=== PATIENT | male | born 1965 | race Caucasian/White ===

== ENCOUNTER 2021-01-20 07:35 | Outpatient (CLI) | payer OTHER, SELFPAY ==
--- NOTE | ~2021-01-20 | XR_ITS ---
EXAMINATION: XR UGIAC w barium swallow DATE: 01/20/2021 08:28 INDICATION: Episodic nausea TECHNIQUE: The patient drank thick barium, gas-producing crystals, and thin barium. A total of 1429 f luoroscopic images of the esophagus, stomach, and proximal small bowel were obtained. Fluoroscopy exp osure time was 2.3 minutes. Total DAP was 22.45 mGycm^2 COMPARISON: None. FINDINGS: The esophagus is normal without mass or stricture. Esophageal motility is normal. There is no hiatal hernia. The stomach and proximal small bowel are normal. There was a single episode of isma roesophageal reflux of a large amount of contrast extending cephalad to the level of the thoracic inl et. IMPRESSION: 1. Gastroesophageal reflux. Otherwise normal and esophagram and upper GI study. Reviewed, dictated and finalized at location A.
== END 2021-01-20 07:36 | disposition home or self-care (01) ==
PROVIDERS: PCP Internal Medicine; Visit Provider Nurse Practitioner
DX: R11.0 Nausea (principal); K21.9 Gastro-esophageal reflux disease without esophagitis
CPT/HCPCS: 74246

== ENCOUNTER 2021-01-23 16:22 | Inpatient (IN) | payer OTHER, SELFPAY ==
[2021-01-23] VITALS (7 sets, daily range): BP systolic 114–129; BP diastolic 74–90; PULSE 84–100; RESP 14–20; TEMP 36.6–36.9; O2SAT 96–100; BMI 33.7
--- NOTE | ~2021-01-23 | CT_ITS ---
EXAMINATION: CT abdomen pelvis wo con EXAM DATE: 01/23/2021 18:11 INDICATION: Intermittent epigastric pain. Diarrhea. Reflux. TECHNIQUE: Spiral CT of the abdomen and pelvis was performed without contrast. Axial, coronal and s agittal images of the abdomen and pelvis were reviewed. The dose-length product (DLP) for this exami [facility] was 926.31 mGy-cm. The exposure was tailored according to patient size (auto mA exposure cont rol), and iterative reconstruction (ASIR) was used as additional dose reduction technique. Comparison is made to prior examination from 06/09/2011. FINDINGS: The liver, spleen, adrenal glands and pancreas are unremarkable. Gallbladder is unremarkab le. No biliary obstruction. There is no nephrolithiasis or hydronephrosis. There is mild prostatom egaly. The bladder is unremarkable. Cluster of pericecal lymph nodes up to 1.1 x 1.3 cm. These lymp h nodes were present in 2010 but were smaller. Could be chronic mesenteric adenitis. There is mild s cattered arteriosclerotic disease. Small inguinal fat-containing hernias. Small umbilical fat-contain ing hernia. The appendix is normal. The stomach and small bowel are unremarkable. There is colonic fluid, corre late for diarrhea. There is mild sigmoid colonic diverticulosis. There is no adjacent inflammatory c hange to suggest diverticulitis. No free intraperitoneal gas. The heart is normal in size. There are no pericardial or pleural effusions. The lung bases are unremarkable. The bones are unremarkabl e. IMPRESSION: 1. Colonic fluid, correlate for diarrhea. 2. Small cluster of mesenteric lymph nodes probably chronic mesenteric adenitis. 3. Mild prostatomegaly. 4. Mild colonic diverticulosis. 5. Small fat-containing hernias. Reviewed, dictated and finalized at location A. IMPRESSION: 1. Colonic fluid, correlate for diarrhea. 2. Small cluster of mesenteric lymph nodes probably chronic mesenteric adeniti s. 3. Mild prostatomegaly. 4. Mild colonic diverticulosis. 5. Small fat-containing hernias.
--- NOTE | ~2021-01-23 | US_ITS ---
EXAMINATION: US renal BI DATE: 01/24/2021 09:32 INDICATION: Acute renal insufficiency TECHNIQUE: Multiple ultrasound grayscale images of the kidneys were obtained. COMPARISON: CT abdomen and pelvis dated 01/23/2021 FINDINGS: The right kidney measures 9.4 x 4.6 x 5.8 cm. The left kidney measures 10.3 x 5.6 x 6.0 cm. The kidne ys demonstrate normal echogenicity. There is no hydronephrosis in either kidney. No stones identifie d. The bladder is normal accounting for partially decompressed state. IMPRESSION: 1. Normal kidneys without hydronephrosis. Reviewed, dictated and finalized at location A.
--- NOTE | ~2021-01-23 | CT_ITS ---
EXAMINATION: CT chest abdomen pelvis wo con DATE: 01/25/2021 09:27 INDICATION: Shortness of breath, diarrhea, acute renal failure TECHNIQUE: Transaxial computed tomographic images of the chest, abdomen, and pelvis were obtained wit hout intravenous contrast. The dose-length product (DLP) was 1320.52 mGy-cm. Automated exposure contr ol and iterative reconstruction technique were employed. COMPARISON: 01/23/2021 FINDINGS: CHEST CT: The lungs are free of acute opacities. There is no pleural effusion or pneumothorax. No pathologicall y enlarged thoracic lymph nodes are identified. The heart size is normal. There is mild thoracic spon dylosis. ABDOMEN/PELVIS CT: The liver, spleen, pancreas, gallbladder, and adrenal glands are normal. The kidneys are unremarkable . No pathologically enlarged abdominal or pelvic lymph nodes are identified. The appendix is normal. There is no free intraperitoneal gas or evidence of bowel obstruction. A small volume of liquid stool is seen in the rectum, consistent with history of diarrhea. Colonic diverticulosis is present withou t evidence of diverticulitis. There is severe lumbar spondylosis. There are fat-containing inguinal a nd umbilical hernias. IMPRESSION: 1. Small amount of liquid stool in the colon, consistent with history of diarrhea. 2. No CT correlate for shortness of breath. Reviewed, dictated and finalized at location A. IMPRESSION: 1. Small amount of liquid stool in the colon, consistent with history of diarrh ea. 2. No CT correlate for shortness of breath.
--- NOTE | 2021-01-23 16:24 | ECG_ITS ---
Measurements Intervals [place] Rate: 100 P: 40 MA: 140 QRS: 19 QRSD: 100 T: 17 QT: 311 QTc: 403 Interpretive Statements SINUS TACHYCARDIA INCOMPLETE RIGHT BUNDLE BRANCH BLOCK DELAYED PRECORDIAL R/S TRANSITION MINIMAL Q WAVES- INFERIOR LEADS BORDERLINE ECG Electronically Signed On 01-23-2021 19:06:08 CDT by Timoteo Vo D.O.
[2021-01-23 17:18] LABS: Basophils Absolute Auto 0.1 K/mm3 (0.0-0.1); Basophils Percent Auto 0.4 % (0.2-1.2); Eosinophils Absolute Auto 0.1 K/mm3 (0-0.3); Eosinophils Percent Auto 0.4 % (0-4.4); Hematocrit 36.2 % (42.0-52.0); Hemoglobin 12.1 g/dL (14.0-18.0); Immature Granulocyte Absolute 0.05 K/mm3 (0.00-0.031); Immature Granulocyte Percent A 0.4 % (0-0.5); Lymphocytes Absolute Auto 1.63 K/mm3 (0.9-3.2); Lymphocytes Percent Auto 11.5 % (18.3-44.2); Mean Corpuscular HGB Conc 33.4 g/dl (32-36); Mean Corpuscular Hemoglobin 30.4 pg (26-34); Mean Platelet Volume 9.5 fl (7.4-10.4); Monocytes Absolute Auto 1.1 K/mm3 (0.1-0.6); Monocytes Percent Auto 7.5 % (2.6-8.5); Neutrophils Absolute Auto 11.4 K/mm3 (1.3-6.7); Neutrophils Percent Auto 79.8 % (45.5-73.1); Platelet Count Result 251 k/mm3 (150-375); Red Blood Count 3.98 M/mm3 (4.6-6.20); Red Cell Distribution Width 12.8 % (11.5-14.5); White Blood Count 14.2 K/mm3 (4.5-10.0)
[2021-01-23 17:24] LABS: Add Urine Microscopic? YES; Appearance Urine Cloudy (Clear); Bacteria Urine Trace /hpf; Bilirubin Urine 1+ (Negative); Blood Urine Negative (Negative); Color Urine Amber (Yellow); Glucose Urine UA Negative (Negative); Hyaline Casts Urine 20-29 /lpf; Ketones Urine Negative (Negative); Leukocyte Esterase Ur Negative LEU/UL (Negative); Mucus Urine Rare /lpf; Nitrate Urine Negative (Negative); Protein Urine 2+ mg/dL (Negative); Squamous Epithelial Cell Urine Few /hpf (Few); WBC Clumps Urine Present /HPF
[2021-01-23 17:27] LABS: Alanine Aminotransferase 19 U/L (4-50); Albumin Level 4.8 g/dL (3.5-5.1); Alkaline Phosphatase 94 U/L (38-126); Anion Gap 15 mmol/L (8-16); Aspartate Amino Transferase 27 U/L (17-59); Bilirubin,Total 0.6 mg/dL (0.2-1.3); Blood Urea Nitrogen 66 mg/dL (9-20); Calcium 9.9 mg/dL (8.4-10.2); Carbon Dioxide 17 mmol/L (22-30); Chloride 109 mmol/L (98-107); Estimated CRCL calculation 19 ml/min; Estimated Glomerular Filt Rate 12; Glucose 104 mg/dL (75-110); Lipase 113 U/L (23-300); Potassium 4.9 mmol/L (3.4-5.0); Sodium 141 mmol/L (137-145)
[2021-01-23 17:39] LABS: Troponin I < 0.012 ng/mL (0.000-0.034)
[2021-01-23] MEDS: SODIUM CHLORIDE 0.9% IV 1,000 ML 999 ML IV CONT (17:57)
--- NOTE | 2021-01-23 18:12 | ED.ABDPAIN ---
HPI - Abdominal Pain General Chief Complaint: Abdominal Pain Stated Complaint: Diarrhea x 2 weeks Time Seen by Provider: 01/23/21 17:50 Source: patient Mode of arrival: ambulatory Limitations: no limitations History of Present Illness HPI narrative: Patient is a 55-year-old male complaining of lower diarrhea, loose watery, nonbloody for the 2 weeks. Patient states that everything he eats or drinks goes right through him. Patient states that he had some chest discomfort after eating, described as burning but only lasted for a few minutes. Patient states that he was diagnosed with GERD this year after having an upper GI study. Patient denies any shortness of breath, nausea, vomiting, fever or chills. Related Data Home Medications Medication Instructions Recorded Confirmed omega-3 fatty acids 1,000 mg 1,000 mg PO DAILY cap 08/15/20 01/07/21 capsule Allergies Allergy/AdvReac Type Severity Reaction Status Date / Time banana Allergy Unknown hives Verified 01/02/21 07:27 Tiana Nut Allergy Mild hives Uncoded 01/02/21 07:27 Review of Systems Review of Systems: All systems reviewed & are unremarkable except as noted in HPI and below Constitutional: Constitutional: Denies body ache(s), Denies chills, Denies excessive sweating, Denies fatigue, Denies fever(s), Denies headache(s), Denies lethargy, Denies malaise, Denies weakness and Denies weight loss Eyes: Eyes: Denies blurry vision, Denies change in vision and Denies loss of vision ENT: Denies dizziness, Denies ear discharge, Denies headache(s), Denies lip swelling, Denies epistaxis, Denies nasal congestion, Denies neck pain, Denies throat swelling and Denies tongue swelling Cardiovascular: Cardiovascular: Denies diaphoresis, Denies rapid heart rate, Denies edema, Denies irregular heart rhythm, Denies lightheadedness, Denies palpitations, Denies dyspnea and Denies dyspnea on exertion Respiratory: Respiratory: Denies chest congestion, Denies cough, Denies hemoptysis, Denies dyspnea and Denies dyspnea on exertion Gastrointestinal: Gastrointestinal: Denies melena, Denies hematochezia, Denies diarrhea, Denies vomiting and Denies hematemesis Musculoskeletal: Musculoskeletal: Denies abnormal gait, Denies deformity, Denies joint swelling, Denies limited range of motion, Denies neck pain and Denies numbness Neurologic: Denies Abnormal speech present, Denies abnormal gait, Denies confusion, Denies dizziness, Denies headache(s), Denies focal weakness, Denies loss of vision, Denies numbness, Denies Other visual disturbances, Denies Sensory deficit (Neuro) and Denies weakness Psychiatric: Psychiatric: Denies confusion, Denies depression, Denies auditory hallucinations, Denies homicidal ideation and Denies suicidal ideation Endocrine: Endocrine: Denies cold intolerance, Denies excessive sweating, Denies fatigue, Denies heat intolerance and Denies palpitations Hematologic/Lymphatic: Hematologic/Lymphatic: Denies easy bleeding and Denies easy bruising Allergic/Immunologic: Allergic/Immunologic: Denies lip swelling, Denies throat swelling and Denies tongue swelling PMFSH Past Medical History Medical History (Updated 01/23/21 @ 19:02 by Elian Al MD) Mixed hyperlipidemia Pre-diabetes Family History Family History Father Family history of diabetes mellitus in first degree relative Family history of congenital heart disease Social History Social History Smoking end date: 07/26/12 Alcohol intake: current Exam Const: General: cooperative, comfortable, no acute distress, well developed, alert and awake; No confusion Orientation/consciousness: oriented to person, oriented to place, oriented to time, patient oriented x3 and No confusion Limitations: no limitations HENMT: Head: normal to inspection, normocephalic and atraumatic Ears: hearing grossly normal antolin
[2021-01-23] MEDS: LACTATED RINGERS 1,000 ML 125 ML IV CONT (19:29)
[2021-01-23 20:50] LABS: Troponin I < 0.012 ng/mL (0.000-0.034)
--- NOTE | 2021-01-23 20:56 | PM.IMHP ---
H&P: HPI History of Present Illness Date/Time: 01/23/21 20:56 This is a 55-year-old male patient who has a history of hypertension and hyperlipidemia. The patient stated that he has been having diarrhea for approximately 2 weeks. The patient states that every time he eats something he has to run to the bathroom it has been a greenish liquid stool. The patient stated that he has not had any stool specimens and had has not had any antibiotics. The patient stated that he has not started any new medications. He has been on the same medications for the last 6 months. He stated that he was diagnosed with prediabetes but was never treated for diabetes. He states that he has never had any kidney problems. His white count was noted to be 14.2. His H&H 12.1 and 36.2. Patient's creatinine was noted to be 5.0 with a GFR of 12 and a BUN of 66. Urine had 2+ protein. patient recently had a upper GI barium swallow on 01/20/2021 due to his stomach problems and the impression was gastroesophageal reflux. Otherwise was a normal esophagram and upper GI study. The patient had a CT of his abdomen and pelvis today which was read as colonic fluid, correlate for diarrhea. Small clusters of mesenteric lymph nodes probably chronic mesenteric adenitis. Mild prostatomegaly. Mild colonic diverticulosis. Small fat containing hernias. I spoke with my collaborative who recommended that the patient get stool specimens and be started on Cipro and Flagyl. The patient was started on IV fluids. He is being admitted to inpatient status on the date of service 01/23/2021 Chief Complaint: Diarrhea Review of Systems Review of Systems: All systems reviewed & are unremarkable except as noted in HPI and below Constitutional: Constitutional: Reports as per HPI and Reports no additional constitutional complaints Eyes: Eyes: Reports as per HPI and Reports no additional eye complaints ENT: Reports system reviewed and no additional complaints, except as documented and Reports Normal hearing present Cardiovascular: Cardiovascular: Reports no additional cardiovascular complaints Respiratory: Respiratory: Reports no additional respiratory complaints and Reports no additional respiratory complaints Gastrointestinal: Gastrointestinal: Reports as per HPI and Reports no additional gastrointestinal complaints Musculoskeletal: Musculoskeletal: Reports no additional musculoskeletal complaints Integumentary/Breasts: Skin/Breast: Reports system reviewed and no additional complaints, except as docu and Reports as per HPI Neurologic: Reports system reviewed and no additional complaints, except as documented, Reports as per HPI and Reports Normal hearing present Psychiatric: Psychiatric: Reports no additional psychiatric complaints and Reports as per HPI Endocrine: Endocrine: Reports no additional endocrine complaints Hematologic/Lymphatic: Hematologic/Lymphatic: Reports no additional hematologic/lymphatic complaints Allergic/Immunologic: Allergic/Immunologic: Reports no additional allergic/immunologic complaints [facility] Past Medical History Medical History (Updated 01/23/21 @ 21:02 by Shantelle Parham NP) Chronic GERD Hypertension Mixed hyperlipidemia Pre-diabetes Surgical History Surgical History (Updated 01/23/21 @ 21:01 by Shantelle Parham NP) History of ankle surgery right History of back surgery x3 History of surgery on arm left arm Family History Family History Father Family history of diabetes mellitus in first degree relative Family history of congenital heart disease Social History Social History (Updated 01/23/21 @ 21:03 by Shantelle Parham NP) Social History: the patient is to a nurse and she is the durable power attorney lawyer for healthcare. They have 3 children. The patient owns a lawn care service. The patient smokes marijuana almost on a daily basis. He he rarely uses alcohol. H
--- NOTE | 2021-01-23 20:58 | PC.NURSE ---
Pt taken to floor with LR infusing
--- NOTE | 2021-01-23 21:29 | PCRCNOTE ---
Patient refused use of hospital unit. Patient stated he did not complete the sleep study and does not use a CPAP or BiPAP at home.
--- NOTE | 2021-01-23 21:40 | ADMGEN ---
This patient, Jeffrey Lyle, was admitted to Medical Room 259-01. Patient/family oriented to hospital policies and general routines including ID bracelet, bed and alarms, visiting hours, pain management, procedures, bathroom and other care routines, personal items, smoking policy, room service/diet, and visiting hours. Information on how to activate the Rapid Response Team has been discussed. Patient/Family are encouraged to report perceived risks to care and to ask questions if they do not understand what they are told or what they should do.
[2021-01-23] MEDS: CIPROFLOXACIN 400 MG/D5W 200ML 200 ML 200 MG IVPB (22:15)
[2021-01-23] MEDS: PANTOPRAZOLE SODIUM IV 40 MG VIAL IV PUSH (22:15)
[2021-01-23] MEDS: diphenhydrAMINE HCl CAP 25 MG CAPSULE PO (22:15)
[2021-01-24] MEDS: metroNIDAZOLE 500 MG/ISO 100ML 500 MG/100 ML BAG 100 MG IVPB ×4 (00:24→17:06)
[2021-01-24 03:46] LABS: Immunochemical Fecal Occult Bl Negative (N)
[2021-01-24 03:47] LABS: IFOB Positive Control Positive
[2021-01-24 05:06] VITALS: BP 121/61; PULSE 82; RESP 16; TEMP 36.3; O2SAT 99
[2021-01-24] MEDS: LACTATED RINGERS 1,000 ML 125 ML IV CONT ×2 (05:53→17:07)
[2021-01-24 06:21] LABS: Basophils Percent Auto 0.5 % (0.2-1.2); Eosinophils Absolute Auto 0.1 K/mm3 (0-0.3); Eosinophils Percent Auto 1.5 % (0-4.4); Hematocrit 30.9 % (42.0-52.0); Hemoglobin 10.4 g/dL (14.0-18.0); Immature Granulocyte Absolute 0.03 K/mm3 (0.00-0.031); Immature Granulocyte Percent A 0.4 % (0-0.5); Lymphocytes Absolute Auto 1.91 K/mm3 (0.9-3.2); Lymphocytes Percent Auto 22.3 % (18.3-44.2); Mean Corpuscular HGB Conc 33.7 g/dl (32-36); Mean Corpuscular Hemoglobin 30.8 pg (26-34); Mean Corpuscular Volume 91.4 fl (80-100); Mean Platelet Volume 9.8 fl (7.4-10.4); Monocytes Absolute Auto 1.1 K/mm3 (0.1-0.6); Monocytes Percent Auto 12.5 % (2.6-8.5); Neutrophils Absolute Auto 5.4 K/mm3 (1.3-6.7); Neutrophils Percent Auto 62.8 % (45.5-73.1); Platelet Count Result 207 k/mm3 (150-375); Red Blood Count 3.38 M/mm3 (4.6-6.20); Red Cell Distribution Width 12.9 % (11.5-14.5); White Blood Count 8.6 K/mm3 (4.5-10.0)
[2021-01-24 06:33] LABS: Lactic Acid Reflex 0.6 mmol/L (0.7-2.1)
[2021-01-24 06:35] LABS: Alanine Aminotransferase 14 U/L (4-50); Alkaline Phosphatase 76 U/L (38-126); Anion Gap 12 mmol/L (8-16); Aspartate Amino Transferase 17 U/L (17-59); Bilirubin,Total 0.4 mg/dL (0.2-1.3); Blood Urea Nitrogen 57 mg/dL (9-20); Calcium 9.1 mg/dL (8.4-10.2); Carbon Dioxide 18 mmol/L (22-30); Chloride 110 mmol/L (98-107); Estimated CRCL calculation 30 ml/min; Estimated Glomerular Filt Rate 20; Glucose 98 mg/dL (75-110); Lactate Dehydrogenase 293 U/L (313-618); Magnesium 1.9 mg/dL (1.6-2.3); Potassium 4.5 mmol/L (3.4-5.0); Sodium 140 mmol/L (137-145)
--- NOTE | 2021-01-24 08:33 | PM.IMPN ---
Progress Note: A&P Assessment and Plan (1) Acute renal failure: Qualifiers: Acute renal failure type: unspecified Qualified Code(s): N17.9 - Acute kidney failure, unspecified Code(s): N17.9 - Acute kidney failure, unspecified Status: Acute Assessment and Plan: Renal ultrasound - no hydronephrosis, no concerns. Continue IV hydration. Recheck BMP and CBC in the a.m.. Nephrology has been consulted. Hold lisinopril. Hold all nephrotoxic medication, renal dose IV antibiotics, and avoid CT contrast dye. (2) Mesenteric adenitis: Code(s): I88.0 - Nonspecific mesenteric lymphadenitis Status: Acute Assessment and Plan: severely dehydrated due to diarrhea for approximately 2 weeks. patient stated every time that he ate anything, he immediately would have to have a liquid green stool. CT scan with small cluster of mesenteric lymph node probably chronic mesenteric adenitis and an elevated white count. IV Cipro and Flagyl. IVFs - rehydration stool specimens cultured. strict I and Os. TSH 2.29 and magnesium 1.9 Continue to monitor electrolytes. (3) Hypertension: Code(s): I10 - Essential (primary) hypertension Status: Chronic Assessment and Plan: Holding lisinopril until renal fxn improves. SBPs 110-120s. p.r.n. hydralazine. (4) Chronic GERD: Code(s): K21.9 - Gastro-esophageal reflux disease without esophagitis Status: Chronic Assessment and Plan: IV Protonix. (5) Mixed hyperlipidemia: Code(s): E78.2 - Mixed hyperlipidemia Status: Acute Assessment and Plan: continued home [place] 3 hodling pravastatin until renal fxn improves (6) COLTON on CPAP: Code(s): G47.33 - Obstructive sleep apnea (adult) (pediatric); Z99.89 - Dependence on other enabling machines and devices Status: Acute Assessment and Plan: May use home CPAP if he has it and still continues to use it. Subjective Date/time seen: 01/24/21 08:33 Interval history: Jeffrey is a 55-year-old male patient who has a history of hypertension and hyperlipidemia. admitted with greenish liquid diarrhea every time he eats something for approximately 2 weeks. No new medications, no travel out of the country, no antibiotics in last 2 months. He stated that he was diagnosed with prediabetes but was never treated for diabetes. He states that he has never had any kidney problems. A1 C worse from 5.8 to 6.1 now. WBC 14.2 improved to 8.6, H/H stable. Patient's creatinine 5.0 improved to 3.2.Urine had 2+ protein.Nephrology consulted. Renal US WNL. HOLDING his lisinopril and statin - will need to monitor BPs. Patient recently had a upper GI barium swallow on 01/20/2021 due to his stomach problems and the impression was gastroesophageal reflux. Otherwise was a normal esophagram and upper GI study. Yesterday CT abdomen and pelvis showed small clusters of larger mesenteric lymph nodes probably chronic mesenteric adenitis. Mild prostatomegaly. Mild colonic diverticulosis. Stool samples/cultures pending in Micro. Started on Cipro and Flagyl, liquid diet, and IV fluids. Patient was hoping to go home tomorrow, I informed him this could take at least 3-5 days to recover from. Review of Systems Review of Systems: All systems reviewed & are unremarkable except as noted in HPI and below Constitutional: Constitutional: Reports as per HPI, Reports no additional constitutional complaints, Denies body ache(s), Denies chills, Denies excessive sweating, Denies fatigue, Denies fever(s), Denies headache(s), Denies lethargy, Denies malaise, Denies weakness and Denies weight loss Eyes: Eyes: Reports as per HPI, Reports no additional eye complaints, Denies blurry vision, Denies change in vision and Denies loss of vision ENT: Reports system reviewed and no additional complaints, except as documented, Reports Normal hearing present, Denies dizziness, Denies ear discharge,
[2021-01-24] MEDS: PANTOPRAZOLE SODIUM IV 40 MG VIAL IV PUSH ×2 (09:07→20:48)
[2021-01-24 09:09] LABS: Hemoglobin A1C 6.1 % (<5.7)
[2021-01-24 10:00] VITALS: BP 109/89; PULSE 92
[2021-01-24] MEDS: OMEGA 3 POLYUNSAT FATTY ACIDS 1 GM CAP PO (10:14)
[2021-01-24] MEDS: lisinopriL 10 MG TABLET 30 MG PO (10:14)
[2021-01-24] MEDS: PRAVASTATIN SODIUM 20 MG TABLET 40 MG PO (10:14)
[2021-01-24] MEDS: THERAPEUTIC MULTIVITAMINS/MINERALS TAB (*BKC) 1 TABLET PO (10:14)
--- NOTE | 2021-01-24 13:18 | PM.CNNEP ---
Assessment and Plan Assessment and plan (1) Acute renal failure: Qualifiers: Acute renal failure type: unspecified Qualified Code(s): N17.9 - Acute kidney failure, unspecified Code(s): N17.9 - Acute kidney failure, unspecified Status: Acute Assessment and Plan: presumably due to prerenal factors for diarrhea and poor oral intake this was likely worsened by continued us his LISSA-I creatinine improving with IVF resuscitation check urine electrolytes follow trend of repeat labs and UOP (2) Mesenteric adenitis: Code(s): I88.0 - Nonspecific mesenteric lymphadenitis Status: Acute Assessment and Plan: etiology? cause of diarrhea x 2 weeks? empirically on antlbiotics follow cultures (3) Hypertension: Code(s): I10 - Essential (primary) hypertension Status: Chronic Assessment and Plan: reasonably controlled holding lisinopril PRN hydralazine follow trend of hemodynamics History of Present Illness Reason for Consult Consult date: 01/24/21 Reason for consult: acute renal failure Chief Complaint Chief complaint: Acute Renal Failure History of Present Illness Narrative: The patient is a 55-year-old male with a past medical history as outlined below who presented to [facility] ER due to complaints of persistent diarrhea. According to the patient he has been having nonstop diarrhea for the last 2 weeks. Every time he eats something he has to use the restroom quite quickly with a resultant greenish liquid stool. The diarrhea is loose and watery and without any evidence of blood. He denies any recent sick contacts or antibiotic use. He denies any new medications in the last few weeks either. Since the diarrhea only occurs whenever he eats something, he is unfortunately limited his oral intake in the hopes that this would resolve if not reduce the episodes of diarrhea. As the symptoms have continued to worsen in the last 2 weeks, he came to the ER for further evaluation. Workup and evaluation emergency room demonstrated the patient to be hemodynamically stable and routine blood test demonstrated a marked decline in his kidney function with a creatinine of 5.0 associated with a GFR of 12. His CBC showed a mildly elevated white blood cell count and mild anemia as well. Given his symptoms as mentioned, he did undergo a CT scan of his abdomen pelvis which demonstrated colonic fluid and small clusters of mesenteric lymph nodes probably due to chronic mesenteric adenitis along with mild prostatomegaly and mild colonic diverticulosis. Given the constellation of symptoms as mentioned in association with the CT scan findings, appropriate cultures were obtained, he was started on IV antibiotics (ciprofloxacin and Flagyl) as well as IV fluids with subsequent admission to the hospital for further testing. Since his admission, as well as IV fluid resuscitation, his BUN and creatinine have improved and he does feel somewhat better in general. Renal consultation was requested due to his acute kidney injury/acute renal failure. From review of his records and discussion with the patient, the patient has no history with regard to kidney disease or renal insufficiency. His last labs in June of 2020 show a creatinine of 1.17 with a fairly well preserved GFR. He does have risk factors for kidney disease in the form of hyperlipidemia, hypertension, and diabetes but all of these conditions have been fairly well controlled with conservative therapy / medications to his knowledge. In spite of his elevated BUN and creatinine, he has no critical electrolyte abnormalities and is making urine. His CT scan did not show any type anatomical abnormalities with regard to his kidneys either. Currently, at the time my visit, the patient does not appear to be any acute distress. Review of Systems Review of Systems: Narrative: As per HPI. [facility] Past Medical History
[2021-01-24 14:00] VITALS: BP 121/74; PULSE 71; RESP 18; TEMP 36.1; O2SAT 100
[2021-01-24] MEDS: CIPROFLOXACIN 400 MG/D5W 200ML 200 ML 200 MG IVPB (20:47)
[2021-01-24 21:26] VITALS: BP 122/81; PULSE 80; RESP 16; TEMP 36.4; O2SAT 99
[2021-01-24] MEDS: diphenhydrAMINE HCl CAP 25 MG CAPSULE PO (22:07)
[2021-01-25] MEDS: metroNIDAZOLE 500 MG/ISO 100ML 500 MG/100 ML BAG 100 MG IVPB ×4 (00:42→18:33)
[2021-01-25 02:30] VITALS: BP 122/96; PULSE 104; RESP 18; TEMP 35.9; O2SAT 100
[2021-01-25] MEDS: LACTATED RINGERS 1,000 ML 125 ML IV CONT ×2 (04:25→14:02)
[2021-01-25 06:00] VITALS: BP 140/71; PULSE 78; RESP 16; TEMP 36.6; O2SAT 96
[2021-01-25 06:00] LABS: Hematocrit 30.6 % (42.0-52.0); Hemoglobin 10.1 g/dL (14.0-18.0); Mean Corpuscular Hemoglobin 30.5 pg (26-34); Mean Corpuscular Volume 92.4 fl (80-100); Mean Platelet Volume 9.5 fl (7.4-10.4); Platelet Count Result 187 k/mm3 (150-375); Red Blood Count 3.31 M/mm3 (4.6-6.20); Red Cell Distribution Width 12.5 % (11.5-14.5); White Blood Count 8.6 K/mm3 (4.5-10.0)
[2021-01-25 06:24] LABS: Anion Gap 7 mmol/L (8-16); Blood Urea Nitrogen 37 mg/dL (9-20); Calcium 9.1 mg/dL (8.4-10.2); Carbon Dioxide 21 mmol/L (22-30); Chloride 112 mmol/L (98-107); Estimated CRCL calculation 50 ml/min; Estimated Glomerular Filt Rate 37; Glucose 96 mg/dL (75-110); Potassium 4.8 mmol/L (3.4-5.0); Sodium 140 mmol/L (137-145)
[2021-01-25] MEDS: THERAPEUTIC MULTIVITAMINS/MINERALS TAB (*BKC) 1 TABLET PO (09:02)
[2021-01-25] MEDS: OMEGA 3 POLYUNSAT FATTY ACIDS 1 GM CAP PO (09:02)
[2021-01-25] MEDS: PANTOPRAZOLE SODIUM IV 40 MG VIAL IV PUSH ×2 (09:02→21:02)
--- NOTE | 2021-01-25 11:20 | PM.PNNEP ---
Progress Note: A&P Assessment and Plan (1) Acute renal failure: Qualifiers: Acute renal failure type: unspecified Qualified Code(s): N17.9 - Acute kidney failure, unspecified Code(s): N17.9 - Acute kidney failure, unspecified Status: Acute Assessment and Plan: presumably due to prerenal factors for diarrhea and poor oral intake this was likely worsened by continued use his LISSA-I creatinine improving reasonably well with IVF resuscitation follow trend of repeat labs and UOP (2) Mesenteric adenitis: Code(s): I88.0 - Nonspecific mesenteric lymphadenitis Status: Acute Assessment and Plan: etiology? cause of diarrhea x 2 weeks? empirically on antlbiotics follow cultures (3) Hypertension: Code(s): I10 - Essential (primary) hypertension Status: Chronic Assessment and Plan: reasonably controlled holding lisinopril PRN hydralazine follow trend of hemodynamics Will continue to follow. Subjective Date/time seen: 01/25/21 11:20 Seems to be doing reasonably well at the time of my visit; quite anxious about discharge today but seems to understand the reasoning for ongoing therapy particularly given his severe NORA/ARF on presentation. Exam Narrative: Exam Narrative: General: WD/WN male in NAD Heart: normal S1 and S2; no rub Lungs: clear to auscultation Abdomen: soft, nontender, nondistended, positive bowel sounds Extremities: no cyanosis or clubbing; no edema Skin: warm and dry Objective Data Vital Signs Vital Signs: Vital Signs Temp Pulse Resp BP Pulse Ox 01/25/21 06:00 36.6 C 78 16 140/71 96 01/24/21 21:26 36.4 C 80 16 122/81 99 01/24/21 14:00 36.1 C L 71 18 121/74 100 Intake/Output Intake/Output: Intake & Output 01/22/21 01/23/21 01/24/21 01/25/21 23:59 23:59 23:59 23:59 Intake Total 1000 4540 1840 Output Total 950 300 Balance 1000 3590 1540 Meds/Results Medications: Active Medications Generic Name Dose Route Start Last Admin Trade Name Freq PRN Reason Stop Dose Admin Calcium Carbonate 200 mg 01/24/21 08:16 Calcium Carbonate (Tums) 500 Mg (200 Mg Elemental) PO Q6H PRN Indigestion Diphenhydramine HCl 25 mg 01/23/21 20:37 01/24/21 22:07 Diphenhydramine Hcl Cap 25 Mg Capsule PO 25 mg Q6H PRN Administration Itching Fish Oil 1 gm 01/24/21 09:00 01/25/21 09:02 [place] 3 Polyunsat Fatty Acids 1 Gm Cap PO 1 gm DAILY JAYSON Administration Hydralazine HCl 10 mg 01/23/21 20:53 Hydralazine Hcl 20 Mg/Ml Vial IV PUSH Q8H PRN Blood Pressure - High Lactated Ringer's 1,000 mls @ 125 mls/hr 01/23/21 19:05 01/25/21 09:01 Lr - Lactated Ringers Iv IV CONT Not Given .Q8H JAYSON Ciprofloxacin/Dextrose 200 mls @ 200 mls/hr 01/24/21 21:00 01/24/21 21:50 Cipro 400 Mg/D5w 200 Ml IVPB Infused HS JAYSON Infusion Metronidazole 500 mg in 100 mls @ 100 mls/hr 01/24/21 00:00 01/25/21 07:50 Flagyl 500 Mg/Iso Soln 100 Ml IVPB Infused Q6HR JAYSON Infusion Multivitamins/Calcium 1 tablet 01/24/21 09:00 01/25/21 09:02 Therapeutic Multivitamins/Minerals Tab (*Bkc) PO 1 tablet DAILY JAYSON Administration Pantoprazole Sodium 40 mg 01/23/21 21:00 01/25/21 09:02 Pantoprazole Sodium Iv 40 Mg Vial IV PUSH 40 mg Q12HR JAYSON Administration Radiology Results: ITS Impressions Abdomen/Pelvis CT 01/23/21 18:11 IMPRESSION: 1. Colonic fluid, correlate for diarrhea. 2. Small cluster of mesenteric lymph nodes probably chronic mesenteric adenitis. 3. Mild prostatomegaly. 4. Mild colonic diverticulosis. 5. Small fat-containing hernias. Renal Ultrasound 01/24/21 09:40 IMPRESSION: 1. Normal kidneys without hydronephrosis. Chest/Abdomen/Pelvis CT 01/25/21 09:47 IMPRESSION: 1. Small amount of liquid stool in the colon, consistent with history of diarrhea. 2. No CT correlate for shortness of breath. L
--- NOTE | 2021-01-25 17:40 | PM.IMPN ---
Progress Note: A&P Assessment and Plan (1) Acute renal failure: Qualifiers: Acute renal failure type: unspecified Qualified Code(s): N17.9 - Acute kidney failure, unspecified Code(s): N17.9 - Acute kidney failure, unspecified Status: Acute Assessment and Plan: Renal ultrasound - no hydronephrosis, no concerns. Weaning IV hydration. Recheck BMP and CBC in the a.m.. Nephrology has been consulted - keeping patient overnight - improving but renal function still in failure. Restarting lisinopril at lower dose 20mg (not 30 mg home dose) Reduce nephrotoxic medications, renal dose IV antibiotics, and avoid CT contrast dye. (2) Mesenteric adenitis: Code(s): I88.0 - Nonspecific mesenteric lymphadenitis Status: Acute Assessment and Plan: severely dehydrated due to diarrhea for approximately 2 weeks - IVF boluses and now weaning IVFs. patient stated every time that he ate anything, he immediately would have to have a liquid green stool - persisting. CT scan with small cluster of mesenteric lymph node probably chronic mesenteric adenitis and an elevated white count. repeat CT scan without referring to enlarged lymph nodes continue IV Cipro and Flagyl - revise based on stool culture results . weaning IVFs - rehydration strict I and Os. TSH 2.29 and magnesium 1.9 WNL Continue to monitor electrolytes. (3) Hypertension: Code(s): I10 - Essential (primary) hypertension Status: Chronic Assessment and Plan: Restarted lisinopril as renal fxn improving and BP more elevated now SBPs 120-140s p.r.n. hydralazine. (4) Chronic GERD: Code(s): K21.9 - Gastro-esophageal reflux disease without esophagitis Status: Chronic Assessment and Plan: IV Protonix. change back to PO at discharge. (5) Mixed hyperlipidemia: Code(s): E78.2 - Mixed hyperlipidemia Status: Acute Assessment and Plan: continued home [place] 3 hodling pravastatin until renal fxn improves (6) COLTON on CPAP: Code(s): G47.33 - Obstructive sleep apnea (adult) (pediatric); Z99.89 - Dependence on other enabling machines and devices Status: Acute Assessment and Plan: patient stated that he walked out during his Sleep Apnea Study many years ago and has never returned or completed one. patient states that because he lost weight, that he doesn't have sleep apnea any more recommended patient to see his PCP and revisit getting his Sleep Study completed this time - informed him that he may be able to ask for a sleeping pill to get through the sleep study next time. Subjective Date/time seen: 01/25/21 17:40 Interval history: Jeffrey is a 55-year-old male patient who has a history of hypertension and hyperlipidemia. He is feeling much better GI hunter, but very agigated with the lack of sleep overnight. He has been angry all day and threatening to leave AMA. He did admit to having at least 5 BMs yesterday (including greenish liquid diarrhea) and another 2 BMs today, still not formed but not a thin per his description. Again he reports today, that the stools occur after any intake of food, such as his 1pm lunch today resulted in stooling. So his volume of stool output is lessening and improving with our interventions. WBC 14.2 improved to 8.6, H/H stable. Patient's creatinine 5.0 improved to 1.9 today. Nephrology not releasing patient for discharge today yet. Restarting his lisinopril and statin. Stool samples/cultures remain pending in Micro. Continued on Cipro and Flagyl, advanced diet to soft and bland, and IV fluids continued. If he continues to improve and stool cultures return normal, expecting patient to go home tomorrow. HISTORY: Patient recently had a upper GI barium swallow on 01/20/2021 due to his stomach problems and the impression was gastroesophageal reflux. Otherwise was a normal esophagram and upper GI study. CT abdomen and pelvis showed small clusters of
[2021-01-25] MEDS: CIPROFLOXACIN 400 MG/D5W 200ML 200 ML 200 MG IVPB (20:48)
[2021-01-25 21:23] VITALS: BP 131/99; PULSE 97; RESP 16; TEMP 36.3; O2SAT 97
[2021-01-26] MEDS: diphenhydrAMINE HCl CAP 25 MG CAPSULE PO (00:09)
[2021-01-26] MEDS: metroNIDAZOLE 500 MG/ISO 100ML 500 MG/100 ML BAG 100 MG IVPB ×2 (00:10→06:35)
[2021-01-26 06:00] VITALS: BP 141/79; PULSE 70; RESP 16; TEMP 36.1; O2SAT 99
[2021-01-26 07:19] LABS: Hematocrit 28.5 % (42.0-52.0); Hemoglobin 9.6 g/dL (14.0-18.0); Mean Corpuscular HGB Conc 33.7 g/dl (32-36); Mean Corpuscular Hemoglobin 30.8 pg (26-34); Mean Corpuscular Volume 91.3 fl (80-100); Mean Platelet Volume 9.3 fl (7.4-10.4); Platelet Count Result 189 k/mm3 (150-375); Red Blood Count 3.12 M/mm3 (4.6-6.20); Red Cell Distribution Width 12.7 % (11.5-14.5); White Blood Count 8.4 K/mm3 (4.5-10.0)
[2021-01-26 07:28] LABS: Anion Gap 7 mmol/L (8-16); Blood Urea Nitrogen 30 mg/dL (9-20); Calcium 8.8 mg/dL (8.4-10.2); Carbon Dioxide 25 mmol/L (22-30); Chloride 108 mmol/L (98-107); Estimated CRCL calculation 56 ml/min; Estimated Glomerular Filt Rate 42; Glucose 94 mg/dL (75-110); Potassium 4.5 mmol/L (3.4-5.0); Sodium 140 mmol/L (137-145)
--- NOTE | 2021-01-26 07:30 | PC.NURSE ---
pt refused ativan and melatonin. Pt was given benadryl for sleep and was not disturbed from approximately midnight through 0600. Labs were drawn later. Pt stated he sleep well.
[2021-01-26] MEDS: OMEGA 3 POLYUNSAT FATTY ACIDS 1 GM CAP PO (08:32)
[2021-01-26] MEDS: PANTOPRAZOLE SODIUM IV 40 MG VIAL IV PUSH (08:33)
[2021-01-26] MEDS: lisinopriL 20 MG TABLET PO (08:33)
[2021-01-26] MEDS: THERAPEUTIC MULTIVITAMINS/MINERALS TAB (*BKC) 1 TABLET PO (08:33)
[2021-01-26] MEDS: PRAVASTATIN SODIUM 20 MG TABLET 40 MG PO (08:33)
--- NOTE | 2021-01-26 10:39 | PM.DS ---
DS: Admitting Diagnosis Admitting Diagnosis Admitting Diagnosis: uncontrolled diarrhea with mesenteric adenitis acute renal failure DS: Discharge Diagnosis Discharge Diagnosis (1) Acute renal failure: Qualifiers: Acute renal failure type: unspecified Qualified Code(s): N17.9 - Acute kidney failure, unspecified Code(s): N17.9 - Acute kidney failure, unspecified Status: Acute Assessment and Plan: IMPROVED. Renal ultrasound - no hydronephrosis, no concerns. STopped IV hydration. labs improved. Nephrology has been consulted - renal failure improving with interventions. using norvasc for BP control, inplace of Lisinopril Reduce nephrotoxic medications, renal dose IV antibiotics, and avoid CT contrast dye. (2) Mesenteric adenitis: Code(s): I88.0 - Nonspecific mesenteric lymphadenitis Status: Acute Assessment and Plan: IMPROVED. severely dehydrated due to diarrhea for approximately 2 weeks - IVF boluses and now weaned IVFs. patient stated every time that he ate anything, he immediately would have to have a liquid green stool - persisting. CT scan with small cluster of mesenteric lymph node probably chronic mesenteric adenitis and an elevated white count. repeat CT scan without referring to enlarged lymph nodes continue oral Cipro and Flagyl stool cultures - WBC Smear not detected, Shiga Toxins Rflx Ecoli -Not Detected, Cryptosporidium Antigen and Campylobacter Culture - PENDING; No Salmonella or Shigella isolated; No toxigenic C. difficile detected; Giardia EIA - Not Detected. Weaned IVFs - tolerating oral hydration strict I and Os. TSH 2.29 and magnesium 1.9 WNL disharge on cipro and Flagyl for full course of treatment F/U with PCP and/or [facility] bowel movements improved: output 5 BMs, 3 BMs, then 1 BMs today patient reports that yesterday afternoon was the first time he could eat lunch and then have a BM 4 hours later, not running to stool immediately after meal. he also reports that today's BM is finally pasty and not watery in nature. (3) Hypertension: Code(s): I10 - Essential (primary) hypertension Status: Chronic Assessment and Plan: CHRONIC. CONTROLLED with meds. Restarted lisinopril as renal fxn improving and BP more elevated now - but discussed with patient and will start on Norvasc at discharge to avoid renal effects. SBPs 140-150s, improved with meds p.r.n. hydralazine. (4) Chronic GERD: Code(s): K21.9 - Gastro-esophageal reflux disease without esophagitis Status: Chronic Assessment and Plan: CHRONIC. CONTROLLED WITH meds. continue at discharge - oral Protonix. change back to PO at discharge. (5) Mixed hyperlipidemia: Code(s): E78.2 - Mixed hyperlipidemia Status: Acute Assessment and Plan: CHRONIC. CONTROLLED WITH meds. continued home [place] 3 restarting pravastatin (6) COLTON on CPAP: Code(s): G47.33 - Obstructive sleep apnea (adult) (pediatric); Z99.89 - Dependence on other enabling machines and devices Status: Acute Assessment and Plan: UNCONTROLLED. CHRONIC. f/u with PCP patient stated that he walked out during his Sleep Apnea Study many years ago and has never returned or completed one. patient states that because he lost weight, that he doesn't have sleep apnea any more recommended patient to see his PCP and revisit getting his Sleep Study completed this time - informed him that he may be able to ask for a sleeping pill to get through the sleep study next time. DS: Summary Hospital Course Hospital Course: patient admitted with uncontrolled diarrhea for 2 weeks and severe dehydration. He was started on aggressive IV fluids Pared with IV Cipro and IV Flagyl. he was NPO status for bowel rest. He was having multiple liquid stools after any oral intake. He gradually made improvements each day and on day 3, today, he was having more form to his bowel movements, in reasona
== END 2021-01-26 11:42 | disposition home or self-care (01) | DRG 684 ==
LOC: ANHED 19:02 → ANH2MED 01-24 07:52
PROVIDERS: Emergency Medicine; Nurse Practitioner; Admitting Provider Internal Medicine; Emergency Provider Emergency Medicine; PCP Internal Medicine; Visit Provider Nurse Practitioner
DX: N17.9 Acute kidney failure, unspecified (principal); E86.0 Dehydration; R19.7 Diarrhea, unspecified; I88.0 Nonspecific mesenteric lymphadenitis; K21.9 Gastro-esophageal reflux disease without esophagitis; E78.2 Mixed hyperlipidemia; I10 Essential (primary) hypertension; R73.03 Prediabetes; G47.33 Obstructive sleep apnea (adult) (pediatric); Z99.89 Dependence on other enabling machines and devices; Z79.899 Other long term (current) drug therapy
CPT/HCPCS: 36415; 71250; 74176; 74246; 76775; 80048; 80053; 81001; 82274; 83036; 83605; 83615; 83690; 83735; 84443; 84484; 85025; 85027; 87015; 87040; 87045; 87046; 87086; 87177; 87209; 87269; 87272; 87324; 87427; 89055; 93005; 96360; 99285; A9270; C9113; J0744; J7030; J7120

== ENCOUNTER 2022-11-05 08:07 | Emergency (ER) | payer OTHER, SELFPAY ==
--- NOTE | ~2022-11-05 | XR_ITS ---
XR elbow RT min 3V 11/05/2022 08:50 Indication: Red swollen wound Procedure: 4 views right elbow Comparison: No prior studies for comparison. Findings: There is moderate soft tissue swelling dorsal to the olecranon process. There are degenerat erick changes of the elbow. No significant joint effusion. No acute fracture or traumatic malalignment. Impression: 1: No acute fracture. Reviewed, dictated and finalized at location L. Impression: 1: No acute fracture.
[2022-11-05 08:26] VITALS: BP 115/103; PULSE 74; RESP 16; TEMP 37.2; O2SAT 97
[2022-11-05 08:27] VITALS: BP 115/103; PULSE 74; RESP 16; TEMP 37.2; O2SAT 97
--- NOTE | 2022-11-05 08:36 | ED.UPPEXIN ---
HPI - Extremity Injury (Upper) General Chief Complaint: Extremity Problem,Nontraumatic Stated Complaint: cut right elbow Time Seen by Provider: 11/05/22 08:16 Source: patient Mode of arrival: ambulatory Limitations: no limitations History of Present Illness HPI narrative: Patient is a 57 year who presents with right elbow pain that started 1-2 weeks ago. 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 States last night he had increased swelling and pain with straightening arm. States put some ointment on arm, and swelling is improved today. Has not taken Tylenol or ibuprofen, has not used ice, has not wrapped elbow. States he can not remember injuring arm but states he must have done something to cause an abrasion. Related Data Home Medications Medication Instructions Recorded Confirmed multivitamin with minerals-folic 1 tablet PO DAILY 01/23/21 11/05/22 acid 0.4 mg tablet (Adult One Daily Multivitamin) Allergies Allergy/AdvReac Type Severity Reaction Status Date / Time hazelnut Allergy Intermediate Hives Verified 11/05/22 08:40 Review of Systems Review of Systems: All systems reviewed & are unremarkable except as noted in HPI and below Constitutional: Constitutional: Denies body ache(s), Denies fever(s), Denies headache(s), Denies malaise and Denies weakness Eyes: Eyes: Denies loss of vision ENT: Denies otalgia, Denies headache(s), Denies nasal discharge, Denies sinus pain and Denies sore throat Cardiovascular: Cardiovascular: Denies chest pain, Denies irregular heart rhythm and Denies dyspnea Respiratory: Respiratory: Denies dyspnea Gastrointestinal: Gastrointestinal: Denies abdominal pain, Denies melena, Denies hematochezia, Denies diarrhea, Denies nausea and Denies vomiting Musculoskeletal: Musculoskeletal: Denies back pain, Denies myalgias and Reports arthralgias Integumentary/Breasts: Skin/Breast: Denies pruritus and Denies rash Neurologic: Denies headache(s), Denies loss of vision and Denies weakness Psychiatric: Psychiatric: Reports no additional psychiatric complaints PMFSH Past Medical History Medical History Chronic GERD Hypertension Mixed hyperlipidemia Pre-diabetes Surgical History Surgical History History of ankle surgery right History of back surgery x3 History of surgery on arm left arm Family History Family History Father Family history of diabetes mellitus in first degree relative Family history of congenital heart disease Social History Social History Social History: the patient is to a nurse and she is the durable power civil litigation attorney for healthcare. They have 3 children. 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 The patient smokes marijuana almost on a daily basis. He he rarely uses alcohol. He occasionally has an alcoholic drink. The patient desires to be a full code. The patient quit smoking cigarettes 20 years ago. Smoking packs per day: 2 Smoking cigarettes per day: 40.0 Years smoked: 20 Smoking pack-years: 40.00 Smoking status: Former smoker Tobacco type: cigarettes Smoking end date: 07/26/12 Alcohol intake: never Substance use: current Substance use type: marijuana Lack of Transportation: No Lack of Food: Never True Current Housing: I Have Housing Concerned About Future Housing: No Difficulty Paying Gas/Electric Bills: No Difficulty Paying for Meds: No Currently Unemployed: No Education: High School Diploma/GED Difficulty w/ Childcare or Family Care: No Spiritual care concerns: No Comments At time of signature, agree with nursing past medical, surgical, social and family history. There is no relevant family history pertinent to the presenting complaint. Exam Const: General: coopera
== END 2022-11-05 09:38 | disposition home or self-care (01) ==
PROVIDERS: Emergency Provider Nurse Practitioner Family; PCP Internal Medicine
DX: L03.113 Cellulitis of right upper limb (principal); M25.421 Effusion, right elbow; Z87.891 Personal history of nicotine dependence; F12.90 Cannabis use, unspecified, uncomplicated; K21.9 Gastro-esophageal reflux disease without esophagitis; I10 Essential (primary) hypertension; E78.2 Mixed hyperlipidemia; R73.03 Prediabetes
CPT/HCPCS: 73080; 99213; G0463